=== PATIENT | male | born 1985 | race Hispanic/Latino ===

== ENCOUNTER 2018-05-19 07:30 | Emergency (ER) | payer BC ==
--- NOTE | 2018-05-19 09:02 | Emergency Department Report ---
ED Medical Clearance HPI - General Chief complaint: Medical Clearance Stated complaint: medical clearence Time Seen by Provider: 05/19/18 08:44 Source: patient Mode of arrival: Ambulatory - History of Present Illness Initial comments: 33-year-old male past medical history opioid abuse, marijuana abuse, psychedelic abuse from anchor [employer] presents for urine drug screening. Patient states that another resident was smoking marijuana last night and staff demanded that several residents be tested for marijuana use including himself. Patient is awake alert and oriented 3 not in acute distress and fully lucid. States that he last used any marijuana over 3 weeks ago. Patient denies any other current drug use other than smoking/vaping. Patient denies any chest pain palpitations shortness of breath nausea vomiting. States he is in usual state of behavior otherwise. Patient requires this clearance to return to outpatient living facility. Patient states he is there for drug rehabilitation MD Complaint: medical clearance request -: Last night Place: home Alledged Intoxication: Yes (states other resident was smoking marijuana at his residence) Treatments Prior to Arrival: none Allergies/Adverse reactions: Allergies Allergy/AdvReac Type Severity Reaction Status Date / Time codeine Allergy Hives Verified 05/19/18 08:12 Sulfa (Sulfonamide Allergy Hives Verified 05/19/18 08:12 Antibiotics) ED Review of Systems ROS: Stated complaint: medical clearence Other details as noted in HPI Constitutional: denies: chills, fever Eyes: denies: eye pain, eye discharge, vision change ENT: denies: ear pain, throat pain Respiratory: denies: cough, shortness of breath, wheezing Cardiovascular: denies: chest pain, palpitations Endocrine: no symptoms reported Gastrointestinal: denies: abdominal pain, nausea, diarrhea Genitourinary: denies: urgency, dysuria Musculoskeletal: denies: back pain, joint swelling, arthralgia Skin: denies: rash, lesions Neurological: denies: headache, weakness, paresthesias Psychiatric: denies: anxiety, depression Hematological/Lymphatic: denies: easy bleeding, easy bruising ED Past Medical Hx - Past Medical History Previous Medical History?: No - Surgical History Past Surgical History?: No - Social History Smoking Status: Current Every Day Smoker Substance Use Type: Marijuana ED Physical Exam - General Limitations: No Limitations General appearance: alert, in no apparent distress - Head Head exam: Present: atraumatic, normocephalic - Eye Eye exam: Present: normal appearance, PERRL, EOMI - ENT ENT exam: Present: mucous membranes moist - Neck Neck exam: Present: normal inspection - Respiratory Respiratory exam: Present: normal lung sounds bilaterally. Absent: respiratory distress - Cardiovascular Cardiovascular Exam: Present: regular rate, normal rhythm. Absent: systolic murmur, diastolic murmur, rubs, gallop - GI/Abdominal GI/Abdominal exam: Present: soft, normal bowel sounds - Rectal Rectal exam: Present: deferred - Extremities Exam Extremities exam: Present: normal inspection - Back Exam Back exam: Present: normal inspection - Neurological Exam Neurological exam: Present: alert, oriented X3, CN II-XII intact, normal gait - Psychiatric Psychiatric exam: Present: normal affect, normal mood - Skin Skin exam: Present: warm, dry, intact, normal color. Absent: rash ED Course Vital Signs 05/19/18 08:09 Temperature 98.7 F Pulse Rate 116 H Respiratory 16 Rate Blood Pressure 137/88 O2 Sat by Pulse 98 Oximetry ED Medical Decision Making - Medical Decision Making A/P: Medical clearance 1-urinalysis drug screening positive for THC. Patient did state that he was smoking/vaping heavy amounts of marijuana up until approximately 3 weeks ago 2-patient has no other abnormalities at this time. Patient is medically cleared for discharge from ED 3-vital signs stable for discharge ED Disposition Clinical Impression: Encounter for drug screening Disposition: DC-01 TO HOME OR SELFCARE Is pt being admited?: No Does the pt Need Aspirin: No Condition: Stable Referrals: [facility] [Provider Group] - 3-5 Days Forms: Work/School Release Form(ED) Time of Disposition: 09:33
[2018-05-19 09:06] LABS: Amphetamine Screen,Urine PRESUMPTIVE NEGATIVE; Benzodiazepines Screen,Urine PRESUMPTIVE NEGATIVE; Cocaine Screen,Urine PRESUMPTIVE NEGATIVE; Methadone Screen,Urine PRESUMPTIVE NEGATIVE; Opiate Screen,Urine PRESUMPTIVE NEGATIVE
[2018-05-19 09:20] LABS: Cannabinoid Screen,Urine PRESUMPTIVE POSITIVE
[2018-05-19 09:41] VITALS: BP 128/91
== END 2018-05-19 09:41 | disposition home or self-care (01) ==
LOC: ED 07:30
DX: Z02.83 Encounter for blood-alcohol and blood-drug test (principal); F17.200 Nicotine dependence, unspecified, uncomplicated; F12.90 Cannabis use, unspecified, uncomplicated; Z88.5 Allergy status to narcotic agent; Z88.2 Allergy status to sulfonamides
CPT/HCPCS: 80307; 99283

== ENCOUNTER 2018-05-25 08:42 | Emergency (ER) | payer BC ==
[2018-05-25 09:03] VITALS: BP 125/83
--- NOTE | 2018-05-25 09:32 | Emergency Department Report ---
ED Rash HPI - HPI Chief Complaint: Skin Rash Stated Complaint: RASH Time Seen by Provider: 05/25/18 09:11 Duration: 3 Days Location: Lower Extremities Rash Symptoms: Yes Itching, Yes Blistering, No Facial Swelling, No Breathing Difficulties, No Choking Sensation, No Wheezing/Dyspnea, No Peeling, No Fever, No Lightheaded, No Malaise, No Myalgias Severity: moderate ED Review of Systems ROS: Stated complaint: RASH Other details as noted in HPI Comment: All other systems reviewed and negative Constitutional: denies: chills, fever Respiratory: denies: cough, orthopnea Gastrointestinal: denies: abdominal pain, nausea Skin: rash, lesions ED Past Medical Hx - Past Medical History Previous Medical History?: No Additional medical history: History of chickenpox when he was young - Surgical History Past Surgical History?: No - Social History Smoking Status: Current Every Day Smoker Substance Use Type: None Rash Exam - Exam General: Vital signs noted. No distress. Alert and acting appropriately. HEENT: No Periorbital Edema, No Conjuctival Injection, No Chemosis, No Compromised Airway Lungs: Yes Good Air Exchange, No Wheezes Skin: Yes Maculopapular Rash, Yes Tenderness, No Erythema, No Edema Other: Positive: Abdomen Normal, Neurologic Normal, Musculoskeletal Normal ED Course Vital Signs 05/25/18 08:58 Temperature 98.8 F Pulse Rate 88 Respiratory 16 Rate Blood Pressure 125/83 O2 Sat by Pulse 99 Oximetry ED Medical Decision Making - Medical Decision Making Patient rash is mostly consistent with shingles. Patient stated that he is going Zoloft to stress in his life now, he also stated that he had a history of chickenpox when he was young. Critical care attestation.: If time is entered above; I have spent that time in minutes in the direct care of this critically ill patient, excluding procedure time. ED Disposition Clinical Impression: Shingles rash Disposition: DC-01 TO HOME OR SELFCARE Is pt being admited?: No Condition: Stable Instructions: Herpes Zoster (ED) Referrals: PRIMARY CARE, [Primary Care Provider] - 3-5 Days
== END 2018-05-25 09:39 | disposition home or self-care (01) ==
LOC: ED 08:42
DX: B02.9 Zoster without complications (principal); F17.200 Nicotine dependence, unspecified, uncomplicated
CPT/HCPCS: 99282